=== PATIENT | female | born 1960 | race Caucasian/White ===

== ENCOUNTER 2020-10-09 16:15 | Outpatient (CLI) | payer OTHER, SELFPAY | END 2020-10-09 16:16 | disposition home or self-care (01) | LOC: ANHCOVIDVC 16:15 | PROVIDERS: PCP Internal Medicine | DX: Z23 Encounter for immunization (principal) | CPT/HCPCS: 0001A; 91300 ==

== ENCOUNTER 2020-10-30 16:11 | Outpatient (CLI) | payer OTHER, SELFPAY | END 2020-10-30 16:12 | disposition home or self-care (01) | LOC: ANHCOVIDVC 16:11 | PROVIDERS: PCP Internal Medicine | DX: Z23 Encounter for immunization (principal) | CPT/HCPCS: 0002A; 91300 ==